=== PATIENT | female | born 1965 | race Caucasian/White ===

== ENCOUNTER 2018-03-07 09:19 | Emergency (ER) | payer MEDICAID ==
[~2018-03-07] VITALS: Ht 175.3 cm; Wt 86.0 kg
[~2018-03-07 09:19] MED LIST: ESZO3TAB38 PO; NITR100C6 PO; ZOL50T PO
[2018-03-07 10:01] LABS: BASOPHILS % (AUTO) 0.7 % (0-1); EOSINOPHILS # (AUTO) 0.1 X10'3 (0-0.9); EOSINOPHILS % (AUTO) 2.4 % (0-6); HEMATOCRIT 41.4 % (35.0-45.0); HEMOGLOBIN 14.4 g/dl (12.0-16.0); LYMPHOCYTES # (AUTO) 1.5 X10'3 (1.1-4.8); LYMPHOCYTES % (AUTO) 26.6 % (21-51); MEAN CORPUSCULAR HEMOGLOBIN 32.8 PG (27.0-31.0); MEAN CORPUSCULAR HGB CONC 34.7 % (33.0-36.5); MEAN CORPUSCULAR VOLUME 94.3 FL (78-98); MEAN PLATELET VOLUME 8.9 FL (7.4-10.4); MONOCYTES # (AUTO) 0.4 X10'3 (0-0.9); NEUTROPHILS # (AUTO) 3.4 X10'3 (1.8-7.7); NEUTROPHILS % (AUTO) 63.3 % (42-75); PLATELET COUNT 180 X10'3 (140-440); RED BLOOD COUNT 4.39 X10'6 (4.20-5.60); WHITE BLOOD COUNT 5.4 X10'3 (4.5-11.0)
[2018-03-07 10:15] LABS: ALANINE AMINOTRANSFERASE 32 U/L (12-78); ALBUMIN 4.1 G/DL (3.4-5.0); ALBUMIN/GLOBULIN RATIO 1.2 (1.1-1.5); ALKALINE PHOSPHATASE 97 IU/L (46-116); ANION GAP 8 (8-16); ASPARTATE AMINO TRANSFERASE 20 U/L (10-37); BLOOD UREA NITROGEN 16 MG/DL (7-18); BUN/CREATININE RATIO 20.5 (6.6-38.0); CALCIUM 9.2 MG/DL (8.5-10.1); CHLORIDE 106 MMOL/L (99-107); CREATININE 0.78 MG/DL (0.40-0.90); GLUCOSE 93 MG/DL (70-104); POTASSIUM 4.2 MMOL/L (3.5-5.1); SODIUM 141 MMOL/L (135-145); TOTAL PROTEIN 7.5 G/DL (6.4-8.2); eGFR 77 ML/MIN
[2018-03-07] MEDS ORDERED: PROCHC RC (10:54)
[2018-03-07 11:03] VITALS: BP 127/83
== END 2018-03-07 11:04 | disposition home or self-care (01) ==
LOC: ER 09:20
DX: K64.9 Unspecified hemorrhoids (principal); R10.84 Generalized abdominal pain; K59.00 Constipation, unspecified; G89.29 Other chronic pain; Z88.5 Allergy status to narcotic agent; Z88.1 Allergy status to other antibiotic agents; Z79.899 Other long term (current) drug therapy
CPT/HCPCS: 36415; 80053; 85025; 99284

== ENCOUNTER 2020-04-19 20:53 | Emergency (ER) | payer MEDICARE, MEDICAID ==
[~2020-04-19] VITALS: Ht 175.3 cm; Wt 41.9 kg
[~2020-04-19 20:53] MED LIST changes: -ESZO3TAB38 PO; +ESZO3TAB66 PO; +PROCHC RC; +SERT-153 PO; -ZOL50T PO
[2020-04-19] MEDS ORDERED: ondansetron/PF 4mg/2ml inj IV ONE (21:25)
[2020-04-19] MEDS ORDERED: morphine 4 MG/ML inj SYRINge IV ONE (21:25)
[2020-04-19 21:58] LABS: BASOPHILS # (AUTO) 0.1 X10'3 (0-0.2); EOSINOPHILS # (AUTO) 0.1 X10'3 (0-0.9); EOSINOPHILS % (AUTO) 1.9 % (0-6); HEMATOCRIT 42.8 % (35.0-45.0); HEMOGLOBIN 14.7 g/dl (12.0-16.0); LYMPHOCYTES # (AUTO) 2.5 X10'3 (1.1-4.8); LYMPHOCYTES % (AUTO) 34.2 % (21-51); MEAN CORPUSCULAR HEMOGLOBIN 32.5 PG (27.0-31.0); MEAN CORPUSCULAR HGB CONC 34.4 g/dL (33.0-36.5); MEAN CORPUSCULAR VOLUME 94.6 FL (78-98); MEAN PLATELET VOLUME 8.9 FL (7.4-10.4); MONOCYTES # (AUTO) 0.7 X10'3 (0-0.9); NEUTROPHILS # (AUTO) 3.9 X10'3 (1.8-7.7); NEUTROPHILS % (AUTO) 53.9 % (42-75); PLATELET COUNT 173 X10'3 (140-440); RED BLOOD COUNT 4.53 X10'6 (4.20-5.60); RED CELL DISTRIBUTION WIDTH 13.1 % (11.5-14.5); WHITE BLOOD COUNT 7.3 X10'3 (4.5-11.0)
[2020-04-19 22:08] LABS: ALANINE AMINOTRANSFERASE 55 U/L (12-78); ALBUMIN/GLOBULIN RATIO 1.2 (1.1-1.5); ALKALINE PHOSPHATASE 95 IU/L (46-116); ANION GAP 9 (8-16); ASPARTATE AMINO TRANSFERASE 26 U/L (10-37); BILIRUBIN,TOTAL 1.1 MG/DL (0.1-1.0); BLOOD UREA NITROGEN 12 MG/DL (7-18); BUN/CREATININE RATIO 11.2 (6.6-38.0); CALCIUM 9.2 MG/DL (8.5-10.1); CHLORIDE 105 MMOL/L (99-107); CREATININE 1.07 MG/DL (0.40-0.90); GLUCOSE 125 MG/DL (70-104); POTASSIUM 3.7 MMOL/L (3.5-5.1); SODIUM 142 MMOL/L (135-145); TOTAL CARBON DIOXIDE 27.8 MMOL/L (24-32); TOTAL PROTEIN 7.4 G/DL (6.4-8.2); eGFR 53 ML/MIN
[2020-04-19] MEDS ORDERED: normal saline 1000ml 1,000 ML IV ONE (22:10)
[2020-04-19 22:16] LABS: CLARITY,URINE CLEAR (Clear); COLOR,URINE YELLOW (Yellow); GLUCOSE, URINE NEGATIVE (Neg); KETONES,URINE NEGATIVE (Neg); LEUKOCYTE ESTERASE ,URINE NEGATIVE (Neg); NITRITES, URINE NEGATIVE (Neg); OCCULT BLOOD,URINE NEGATIVE (Neg); PROTEIN,URINE NEGATIVE (Neg)
[2020-04-19 22:17] LABS: UA COLLECTION TYPE CLN CATCH MIDSTREAM
[2020-04-19] MEDS ORDERED: iohexol 300mg/ml 100ml inj. ONE (22:18)
[2020-04-19 22:43] VITALS: BP 138/85
--- NOTE | 2020-04-19 22:43 | NUR ---
RELIEVING RN FOR BREAK, PT IS BACK FROM CT, 1ST LITER NS INFUSING W/O, PT IS RESTING QUIETLY ON GURNEY
[2020-04-19] MEDS ORDERED: ONDA4TAB6 PO (23:20)
[2020-04-19] MEDS ORDERED: HYDR-4383 PO (23:20)
[2020-04-19] MEDS ORDERED: BACDS PO (23:20)
== END 2020-04-19 23:46 | disposition home or self-care (01) ==
LOC: ER 20:54
DX: K60.5 Anorectal fistula (principal); G89.29 Other chronic pain; Z72.89 Other problems related to lifestyle; Z91.040 Latex allergy status; Z88.5 Allergy status to narcotic agent; Z79.2 Long term (current) use of antibiotics; Z79.899 Other long term (current) drug therapy
CPT/HCPCS: 36415; 72193; 80053; 81003; 85025; 96374; 96375; 99285; J2270; J2405; J7030; Q9967

== ENCOUNTER 2020-06-09 09:13 | Emergency (ER) | payer MEDICARE, BC, MEDICAID ==
[~2020-06-09] VITALS: Ht 175.3 cm; Wt 95.5 kg
[~2020-06-09 09:13] MED LIST changes: +HYDR-4383 PO; +ONDA4TAB6 PO
[2020-06-09] MEDS ORDERED: normal saline 1000ml 1,000 ML IV ONE (09:45)
[2020-06-09] MEDS ORDERED: ondansetron/PF 4mg/2ml inj IV ONE (09:50)
[2020-06-09] MEDS ORDERED: morphine 4 MG/ML inj SYRINge IV ONE ×3 (09:50→13:05)
[2020-06-09] MEDS ORDERED: iohexol 300mg/ml 100ml inj. ONE (09:57)
[2020-06-09 10:29] LABS: BASOPHILS # (AUTO) 0.1 X10'3 (0-0.2); BASOPHILS % (AUTO) 1.1 % (0-1); EOSINOPHILS # (AUTO) 0.1 X10'3 (0-0.9); EOSINOPHILS % (AUTO) 1.9 % (0-6); HEMATOCRIT 40.7 % (35.0-45.0); LYMPHOCYTES # (AUTO) 1.8 X10'3 (1.1-4.8); LYMPHOCYTES % (AUTO) 31.1 % (21-51); MEAN CORPUSCULAR HGB CONC 34.4 g/dL (33.0-36.5); MEAN CORPUSCULAR VOLUME 93.3 FL (78-98); MEAN PLATELET VOLUME 8.7 FL (7.4-10.4); MONOCYTES # (AUTO) 0.6 X10'3 (0-0.9); MONOCYTES % (AUTO) 10.5 % (2-12); NEUTROPHILS # (AUTO) 3.2 X10'3 (1.8-7.7); NEUTROPHILS % (AUTO) 55.4 % (42-75); PLATELET COUNT 176 X10'3 (140-440); RED BLOOD COUNT 4.36 X10'6 (4.20-5.60); WHITE BLOOD COUNT 5.8 X10'3 (4.5-11.0)
[2020-06-09 10:45] LABS: ALANINE AMINOTRANSFERASE 60 U/L (12-78); ALBUMIN 3.6 G/DL (3.4-5.0); ALBUMIN/GLOBULIN RATIO 0.9 (1.1-1.5); ALKALINE PHOSPHATASE 87 IU/L (46-116); ANION GAP 7 (8-16); ASPARTATE AMINO TRANSFERASE 28 U/L (10-37); BILIRUBIN,TOTAL 0.8 MG/DL (0.1-1.0); BLOOD UREA NITROGEN 11 MG/DL (7-18); BUN/CREATININE RATIO 13.4 (6.6-38.0); CHLORIDE 105 MMOL/L (99-107); CREATININE 0.82 MG/DL (0.40-0.90); GLUCOSE 98 MG/DL (70-104); SODIUM 139 MMOL/L (135-145); TOTAL CARBON DIOXIDE 27.2 MMOL/L (24-32); TOTAL PROTEIN 7.5 G/DL (6.4-8.2); eGFR 72 ML/MIN
[2020-06-09 11:29] LABS: CLARITY,URINE SLIGHTLY CLOUDY (Clear); COLOR,URINE STRAW (Yellow); GLUCOSE, URINE NEGATIVE (Neg); KETONES,URINE NEGATIVE (Neg); LEUKOCYTE ESTERASE ,URINE NEGATIVE (Neg); NITRITES, URINE NEGATIVE (Neg); OCCULT BLOOD,URINE NEGATIVE (Neg); PH,URINE 6.5 (4.8-8.0); PROTEIN,URINE NEGATIVE (Neg); UROBILINOGEN,URINE 0.2 E.U/dL (0.2-1.0)
[2020-06-09 11:31] LABS: UA COLLECTION TYPE CLN CATCH MIDSTREAM
[2020-06-09 11:36] LABS: MUCUS STRANDS FEW /LPF (Neg); SQUAMOUS EPITHELIAL CELL,UR MODERATE /LPF (FEW)
[2020-06-09 11:37] LABS: BACTERIA,URINE FEW /HPF (Neg); RBC,URINE 0-2 /HPF (0-2); WBC,URINE 0-4 /HPF (0-4)
[2020-06-09] MEDS ORDERED: ciprofloxacin 250mg tablet PO ONE (13:00)
[2020-06-09] MEDS ORDERED: HYDR-3965 PO (13:03)
[2020-06-09] MEDS ORDERED: HYDROcodone/acetaminophen 5mg/325mg tablet PO ONE (13:05)
[2020-06-09 13:50] VITALS: BP 133/89
== END 2020-06-09 13:51 | disposition home or self-care (01) ==
LOC: ER 09:14
DX: K60.5 Anorectal fistula (principal); G89.18 Other acute postprocedural pain; K62.89 Other specified diseases of anus and rectum; G89.29 Other chronic pain; Z72.89 Other problems related to lifestyle; Z91.040 Latex allergy status; Z88.5 Allergy status to narcotic agent; Z79.899 Other long term (current) drug therapy
CPT/HCPCS: 36415; 72193; 80053; 81001; 83605; 84145; 85025; 96361; 96374; 96375; 96376; 99284; J2270; J2405; J7030; Q9967

== ENCOUNTER 2021-11-17 16:04 | Emergency (ER) | payer MEDICARE, MEDICAID ==
[~2021-11-17] VITALS: Ht 175.3 cm; Wt 86.4 kg
[2021-11-17 16:06] VITALS: BP 154/91
[2021-11-17] MEDS ORDERED: TETanus/Pertussis (Acell)/Diphther VAC/PF (Tdap-Adult) 0.5ml syringe IMVAC ONE (16:20)
== END 2021-11-17 17:14 | disposition home or self-care (01) ==
LOC: ER 16:05
DX: S61.311A Laceration without foreign body of left index finger with damage to nail, initial encounter (principal); G89.29 Other chronic pain; Z72.89 Other problems related to lifestyle; Z88.1 Allergy status to other antibiotic agents; Z91.040 Latex allergy status; Z88.8 Allergy status to other drugs, medicaments and biological substances; Z79.899 Other long term (current) drug therapy; W26.0XXA Contact with knife, initial encounter; Y93.H2 Activity, gardening and landscaping; Y92.89 Other specified places as the place of occurrence of the external cause; Y99.8 Other external cause status
CPT/HCPCS: 90471; 90715; 99283

== ENCOUNTER 2022-07-18 13:48 | Emergency (ER) | payer MEDICARE, MEDICAID ==
[~2022-07-18] VITALS: Ht 175.3 cm; Wt 90.9 kg
[2022-07-18 14:00] VITALS: BP 151/102
== END 2022-07-18 17:59 | disposition home or self-care (01) ==
LOC: ER 13:48
DX: M79.602 Pain in left arm (principal); G89.29 Other chronic pain; M54.50 Low back pain, unspecified; Z88.1 Allergy status to other antibiotic agents; Z88.5 Allergy status to narcotic agent; Z91.040 Latex allergy status; Z91.041 Radiographic dye allergy status
CPT/HCPCS: 29125; 73110; 99283; A4565; A6446; A6449

== ENCOUNTER → 2023-09-21 | Emergency (ER) | payer MEDICARE, MEDICAID ==
[~2023-09-21] VITALS: Ht 175.3 cm; Wt 86.5 kg
[~2023-09-21] MED LIST changes: +DICY10CA88 PO; +IBUP-1984 PO; +ketorolac tromethamine 15mg/ml inj. IM ONE
[2023-09-21 12:35] LABS: BILIRUBIN,URINE NEGATIVE (Neg); CLARITY,URINE CLEAR (Clear); COLOR,URINE YELLOW (Yellow); GLUCOSE, URINE NEGATIVE (Neg); KETONES,URINE NEGATIVE (Neg); LEUKOCYTE ESTERASE ,URINE TRACE (Neg); NITRITES, URINE NEGATIVE (Neg); OCCULT BLOOD,URINE NEGATIVE (Neg); PROTEIN,URINE NEGATIVE (Neg); UROBILINOGEN,URINE 0.2 E.U/dL (0.2-1.0)
[2023-09-21 12:51] LABS: UA COLLECTION TYPE CLN CATCH MIDSTREAM
[2023-09-21 12:53] LABS: BACTERIA,URINE FEW /HPF (Neg); MUCUS STRANDS NONE SEEN /LPF (Neg); RBC,URINE NONE SEEN /HPF (0-2); SQUAMOUS EPITHELIAL CELL,UR FEW /LPF (FEW); WBC CLUMPS,URINE FEW /HPF (NEGATIVE)
[2023-09-21 12:57] LABS: BASOPHILS # (AUTO) 0.1 X10'3 (0-0.2); BASOPHILS % (AUTO) 0.5 % (0-1); EOSINOPHILS # (AUTO) 0.1 X10'3 (0-0.9); EOSINOPHILS % (AUTO) 0.9 % (0-6); HEMATOCRIT 41.2 % (35.0-45.0); HEMOGLOBIN 14.2 g/dl (12.0-16.0); LYMPHOCYTES # (AUTO) 1.9 X10'3 (1.1-4.8); LYMPHOCYTES % (AUTO) 17.6 % (21-51); MEAN CORPUSCULAR HEMOGLOBIN 32.6 PG (27.0-31.0); MEAN CORPUSCULAR HGB CONC 34.4 g/dL (33.0-36.5); MEAN CORPUSCULAR VOLUME 94.7 FL (78-98); MEAN PLATELET VOLUME 9.3 FL (7.4-10.4); MONOCYTES # (AUTO) 0.7 X10'3 (0-0.9); MONOCYTES % (AUTO) 6.8 % (2-12); NEUTROPHILS # (AUTO) 8.1 X10'3 (1.8-7.7); NEUTROPHILS % (AUTO) 74.2 % (42-75); PLATELET COUNT 173 X10'3 (140-440); RED BLOOD COUNT 4.35 X10'6 (4.20-5.60); WHITE BLOOD COUNT 10.9 X10'3 (4.5-11.0)
[2023-09-21 13:16] LABS: ALANINE AMINOTRANSFERASE 26 U/L (12-78); ALBUMIN 3.8 G/DL (3.4-5.0); ALBUMIN/GLOBULIN RATIO 1.2 (1.1-1.5); ALKALINE PHOSPHATASE 74 IU/L (46-116); ANION GAP 8 (8-16); ASPARTATE AMINO TRANSFERASE 17 U/L (10-37); BILIRUBIN,TOTAL 1.3 MG/DL (0.1-1.0); BLOOD UREA NITROGEN 15 MG/DL (7-18); BUN/CREATININE RATIO 17.9 (10.0-20.0); CALCIUM 9.1 MG/DL (8.5-10.1); CHLORIDE 104 MMOL/L (99-107); CREATININE 0.84 MG/DL (0.40-0.90); GLUCOSE 92 MG/DL (70-104); LIPASE 40 U/L (16-77); POTASSIUM 3.6 MMOL/L (3.5-5.1); SODIUM 141 MMOL/L (135-145); TOTAL CARBON DIOXIDE 29.1 MMOL/L (24-32); eCRCL 76 ML/MIN; eGFR 70 ML/MIN
[2023-09-21 16:12] VITALS: TEMP 97.8
[2023-09-21 16:22] VITALS: BP 138/68; PULSE 63; RESP 16; O2SAT 98
--- NOTE | 2023-09-21 16:36 | NUR ---
pt denies any difficulty with urination pt does not have any urinary symptoms. XPLVN
--- NOTE | 2023-09-22 04:32 | NUR ---
Patient discharged during dayshift yesterday, unable to verify accuracy of DICTATING MACHINE TYPIST assessment.
== END | disposition home or self-care (01) ==
LOC: ER 11:08
DX: R10.84 Generalized abdominal pain (principal); K59.00 Constipation, unspecified; R11.0 Nausea; M54.50 Low back pain, unspecified; G89.29 Other chronic pain; Z98.890 Other specified postprocedural states; Z72.89 Other problems related to lifestyle; Z91.040 Latex allergy status; Z88.1 Allergy status to other antibiotic agents; Z88.5 Allergy status to narcotic agent; Z79.899 Other long term (current) drug therapy
CPT/HCPCS: 36415; 74022; 74176; 80053; 81001; 83690; 85025; 87088; 96372; 99285; J1885; 99284

== ENCOUNTER 2025-03-12 08:39 | Emergency (ER) | payer OTHER, MEDICARE ==
[~2025-03-12] VITALS: Ht 175.3 cm; Wt 90.9 kg
[~2025-03-12 08:39] MED LIST changes: -DICY10CA88 PO; -IBUP-1984 PO; -ketorolac tromethamine 15mg/ml inj. IM ONE
[2025-03-12 08:47] VITALS: TEMP 97.3
[2025-03-12 09:24] LABS: BASOPHILS # (AUTO) 0.1 X10'3 (0-0.2); BASOPHILS % (AUTO) 1.3 % (0-1); MONOCYTES # (AUTO) 0.6 X10'3 (0-0.9); NEUTROPHILS # (AUTO) 4.4 X10'3 (1.8-7.7); PLATELET COUNT 190 X10'3 (140-440)
[2025-03-12 09:25] LABS: EOSINOPHILS # (AUTO) 0.3 X10'3 (0-0.9); EOSINOPHILS % (AUTO) 3.6 % (0-6); HEMATOCRIT 42.8 % (35.0-45.0); HEMOGLOBIN 14.9 g/dl (12.0-16.0); LYMPHOCYTES # (AUTO) 1.9 X10'3 (1.1-4.8); LYMPHOCYTES % (AUTO) 26.1 % (21-51); MEAN CORPUSCULAR HEMOGLOBIN 32.3 PG (27.0-31.0); MEAN CORPUSCULAR HGB CONC 34.7 g/dL (33.0-36.5); MEAN PLATELET VOLUME 9.4 FL (7.4-10.4); MONOCYTES % (AUTO) 8.2 % (2-12); NEUTROPHILS % (AUTO) 60.8 % (42-75); WHITE BLOOD COUNT 7.2 X10'3 (4.5-11.0)
[2025-03-12 09:39] LABS: ALANINE AMINOTRANSFERASE 42 U/L (12-78); ALBUMIN 3.6 G/DL (3.4-5.0); ALKALINE PHOSPHATASE 103 IU/L (46-116); ANION GAP 8 (8-16); ASPARTATE AMINO TRANSFERASE 23 U/L (10-37); BILIRUBIN,TOTAL 1.2 MG/DL (0.1-1.0); BLOOD UREA NITROGEN 9 MG/DL (7-18); CALCIUM 8.9 MG/DL (8.5-10.1); CHLORIDE 106 MMOL/L (99-107); CREATININE 0.82 MG/DL (0.40-0.90); GLUCOSE 116 MG/DL (70-104); LIPASE 39 U/L (16-77); POTASSIUM 4.3 MMOL/L (3.5-5.1); SODIUM 140 MMOL/L (135-145); TOTAL CARBON DIOXIDE 26.4 MMOL/L (24-32); TOTAL PROTEIN 7.2 G/DL (6.4-8.2); eCRCL 76 ML/MIN; eGFR 71 ML/MIN
--- NOTE | 2025-03-12 09:52 | Physician Documentation ---
History of Present Illness Chief Complaint: Abdominal Pain Stated Complaint: ABD PAIN Time Seen by MD: 09:43 OK to notify your PCP?: Yes Primary Medical Doctor: [facility] Source: patient Mode of Arrival: POV Exam Limitations: no limitations HPI This is a 59-year-old female who comes in complaining of left lower quadrant abdominal pain that is she says it has been persistent for the past three days. She denies nausea vomiting diarrhea. She denies dark tarry or bloody stools. She says she did have one episode of painful urination yesterday however that pete s seems to have resolved. She denies shay blood in the urine. She denies fever or pain that wraps around the flank. Medication Reconciliation Allergies: Coded Allergies: latex (Verified Allergy, Mild, hives, 03/12/25) cephalexin (Verified Adverse Reaction, Unknown, N/V, 03/12/25) codeine (Verified Adverse Reaction, Unknown, N/V, 03/12/25) erythromycin base (Verified Adverse Reaction, Unknown, N/V, 03/12/25) Scheduled Eszopiclone (Lunesta), 1 TAB PO HS, (Reported) Hydrocodone/Acetaminophen (Keene 5-325 Tablet), 1 TAB PO TID PRN Hydrocortisone/Pramoxine (Proctofoam-Hc 1%-1% Foam), 1 APPLICATOR RC Q12H Nitrofurantoin Monohyd/M-Cryst (Macrobid 100 mg Capsule), 1 CAP PO Q12H Ondansetron Hcl (Zofran), 1 TAB PO Q6H Sertraline HCl (Sertraline HCl), 4 TABLET PO DAILY, (Reported) Past Medical History Past Medical History: Chronic Back Pain Past Surgical History: orthopedic surgeries, other Alcohol Use: Occasionally Drug Use: none Lives with: Family Lives In: Home Occupation: employed Physical Exam Vital Signs: Temperature: 97.3, Heart Rate: 83, Respiratory Rate: 16, BP: 137/97, Pulse Oximetry: 96, Weight: 90.910 Pulse Oximetry Reflects: adequate oxygenation General Appearance: alert, WD/WN, no apparent distress Gastrointestinal To inspection of the abdomen no obvious distention. There is tenderness to palpation of the floor quadrant of the abdomen. No rigidity rebound or guarding x4 quadrants. Negative Frost's sign. Negative McBurney's point tenderness. Progress Results/Orders Results/Orders Orders - ZAC MICHAEL Ct Abdomen Pelvis (03/12/25 09:48) Vital Signs 03/12/25 08:47 Temp 97.3 Pulse 83 Resp 16 B/P (MAP) 137/97 Pulse Ox 96 Laboratory Tests Test 03/12/25 09:08 White Blood Count 7.2 Red Blood Count 4.60 Hemoglobin 14.9 Hematocrit 42.8 Mean Corpuscular Volume 93.0 Mean Corpuscular Hemoglobin 32.3 H Mean Corpuscular Hemoglobin Concent 34.7 Red Cell Distribution Width 13.0 Platelet Count 190 Mean Platelet Volume 9.4 Neutrophils (%) (Auto) 60.8 Lymphocytes (%) (Auto) 26.1 Monocytes (%) (Auto) 8.2 Eosinophils (%) (Auto) 3.6 Basophils (%) (Auto) 1.3 H Neutrophils # (Auto) 4.4 Lymphocytes # (Auto) 1.9 Monocytes # (Auto) 0.6 Eosinophils # (Auto) 0.3 Basophils # (Auto) 0.1 CBC Comment Sodium Level 140 Potassium Level 4.3 Chloride Level 106 Carbon Dioxide Level 26.4 Anion Gap 8 Blood Urea Nitrogen 9 Creatinine 0.82 Estimated GFR/1.73 m2 71 BUN/Creatinine Ratio 11.0 Glucose Level 116 H Calcium Level 8.9 Total Bilirubin 1.2 H Aspartate Amino Transf (AST/SGOT) 23 Alanine Aminotransferase (ALT/SGPT) 42 Alkaline Phosphatase 103 Total Protein 7.2 Albumin 3.6 Globulin 3.6 Albumin/Globulin Ratio 1.0 L Lipase 39 Chemistry Comments Medical Decision Making Findings The patient's lab work was all within normal limits however CT scan did show some mild stranding of the left lower quadrant of the abdomen appears consistent with a diverticulitis. I gave the patient a dose of Levaquin and Flagyl and we will continue with the same medications for home for the next 10 days. I inst ructed her to eat foods that are easy to digest and stay away from seeds and nuts. Follow up with the primary care physician for recheck in the next one or two days. Return to the ER for increased pain, fever or any concerns Additional Comments Abdominal pain. Diverticulitis. Colitis. UTI. Pyelonephritis. Kidney stone. Departure Disposition: HOME / SELF CARE / HOMELESS Impression: Primary Impression: Diverticulitis Condition: Stable Discharge Instructions: Diverticulitis Additional Instructions: Your CT scan did confirm diverticulitis in the left lower abdomen. Usually stay away from foods that are hard to digest such as nuts and seeds. He had a clear liquid soft bland diet. Follow up with your primary care physician for recheck in the next one or two days. Take all medications as directed. Return to the ER for any worsening or concerning symptoms Referrals: NO PRIMARY CARE PROVIDER (PCP) Prescriptions Metronidazole* (Flagyl*) 500 Mg Tablet 1 TAB PO BID for 10 Days, #20 TAB Prov: ZAC MICHAEL 03/12/25 Levofloxacin (Levofloxacin) 500 Mg Tablet 1 TAB PO DAILY for 10 Days, #10 TAB Prov: ZAC MICHAEL 03/12/25 Signature Scribe Signature: No scribe Attestation: The note accurately reflects work and decisions made by me.Zac PETTIT 03/12/25 11:10 ZAC MICHAEL March 12, 2025 09:52
[2025-03-12 10:35] LABS: BILIRUBIN,URINE NEGATIVE (Neg); CLARITY,URINE CLEAR (Clear); COLOR,URINE YELLOW (Yellow); GLUCOSE, URINE NEGATIVE (Neg); KETONES,URINE NEGATIVE (Neg); LEUKOCYTE ESTERASE ,URINE NEGATIVE (Neg); NITRITES, URINE NEGATIVE (Neg); OCCULT BLOOD,URINE NEGATIVE (Neg); PROTEIN,URINE NEGATIVE (Neg); URINE HCG NEGATIVE (NEG); UROBILINOGEN,URINE 0.2 E.U/dL (0.2-1.0)
[2025-03-12] MEDS: HYDROcodone/acetaminophen 10/325mg tab PO ONE (10:35)
[2025-03-12 10:41] LABS: UA COLLECTION TYPE CLN CATCH MIDSTREAM
--- NOTE | 2025-03-12 10:47 | RADIOLOGY REPORT ---
CT ABDOMEN AND PELVIS WITHOUT CONTRAST CLINICAL HISTORY: Left lower quadrant abdominal pain TECHNIQUE: Multiple contiguous axial images of the abdomen and pelvis without intravenous contrast. T he images were reformatted degenerate coronal and sagittal reconstructions. All CT scans at this medical facility are performed using dose modulation techniques as appropriate t o a performed exam including the following:Automated exposure control was utilized; adjustment of the MA and/or KV according to patient size; and use of iterative reconstruction technique. Radiation Dose Information: CT Dose: CTDI volume is 29 mGy. Dose-length product is 1499 mGy*cm Comparison: None. FINDINGS: Evaluation of the abdomen and pelvis is limited without intravenous contrast. There is a 4.7 cm cyst in the midpole of the right kidney. There is no evidence of nephrolithiasis o r hydronephrosis. The liver, gallbladder, pancreas, adrenal glands, and spleen appear within kevin l limits. There is no gross evidence of abdominal lymphadenopathy. There is no free fluid or free air. The stomach grossly appears within normal limits. The small and large bowel loops demonstrate normal caliber. There are scattered diverticula in the distal colon. There is mild fat stranding adjacent to the lower descending colon likely related to mild acute diverticulitis. There is no pericolonic flui d collection or free air. A normal appearing appendix is seen in the right lower quadrant abdomen. The abdominal aorta and IVC appear within normal limits. The bladder appears unremarkable. Uterus is surgically absent.. There is no evidence of a pelvic ma ss or lymphadenopathy. There is no free fluid collection. The lung bases are clear. There is no acute osseous abnormality. IMPRESSION: 1. There are scattered diverticula in the distal colon. There is mild fat stranding adjacent to the lower descending colon likely related to mild acute diverticulitis. There is no pericolonic fluid col lection or free air. 2. 4.7 cm right midpole renal cyst. HS:Y
[2025-03-12] MEDS: metroNIDAZOLE 500mg tablet PO ONE (11:10)
[2025-03-12] MEDS ORDERED: LEVO-65 PO (11:10)
[2025-03-12] MEDS ORDERED: METR-159 PO (11:10)
[2025-03-12] MEDS: levoFLOXACIN 750MG TABLET PO ONE (11:10)
[2025-03-12 11:20] VITALS: BP 151/105; PULSE 69; RESP 15; O2SAT 96
== END 2025-03-12 11:21 | disposition home or self-care (01) ==
LOC: ER 08:40
DX: K57.32 Diverticulitis of large intestine without perforation or abscess without bleeding (principal); Z88.1 Allergy status to other antibiotic agents; Z88.5 Allergy status to narcotic agent; Z88.8 Allergy status to other drugs, medicaments and biological substances
CPT/HCPCS: 36415; 74176; 80053; 81003; 81025; 83690; 85025; 99284